=== PATIENT | male | born 1970 | race Caucasian/White ===

== ENCOUNTER 2024-10-23 03:31 | Inpatient (IN) | payer SELFPAY ==
[~2024-10-23] VITALS: Ht 167.6 cm; Wt 59.4 kg
[2024-10-23] VITALS (56 sets, daily range): BP systolic 113–156; BP diastolic 74–124; PULSE 65–91; RESP 8–35; TEMP 36.8–37.1; O2SAT 95–100
[2024-10-23] MEDS: LABETALOL 5MG/ML 4ML INJ IV ONE (04:00)
[2024-10-23] MEDS: CEFTRIAXONE 1GM/50ML 50 ML IV ONE (04:00)
[2024-10-23] MEDS: FUROSEMIDE 40MG/4ML VIAL IV ONE (04:00)
[2024-10-23 04:02] LABS: BASOPHILS % 0.2 % (0.0-2.0); EOSINOPHILS % 2.7 % (0.0-5.0); HEMATOCRIT. 35.6 % (42.0-52.0); HEMOGLOBIN. 11.9 g/dL (14.0-18.0); LYMPHOCYTES % 29.6 % (20.0-50.0); MEAN PLATELET VOLUME 9.5 fl (7.4-10.4); MONOCYTES % 6.1 % (2.0-8.0); NEUTROPHILS % 61.4 % (40.0-76.0); PLATELET 266 x1000/uL (130-400); RED BLOOD CELL COUNT 4.39 mill/uL (4.7-6.1); RED CELL DISTRIBUTION WIDTH 15.8 % (11.6-14.6)
[2024-10-23 04:18] LABS: CREATININE 0.9 mg/dL (0.6-1.3)
[2024-10-23 04:19] LABS: UREA NITROGEN BLOOD 12 mg/dL (9-23)
[2024-10-23 04:20] LABS: ASPARTATE AMINOTRANSFERASE 19 IU/L (<34); BILIRUBIN DIRECT 0.5 mg/dL (<=3.0)
[2024-10-23 04:21] LABS: BILIRUBIN TOTAL 2.3 mg/dL (0.1-1.0); PROTEIN TOTAL 6.8 g/dL (6.0-8.3)
[2024-10-23 04:22] LABS: TROPONIN I HIGH SENSITIVITY 238 ng/L (3.0-53)
[2024-10-23] MEDS: NICARDIPINE 40MG/200ML PREMIX 200 ML IV SCH (04:34)
[2024-10-23 04:49] LABS: BG BASE EXCESS 1.0 mmol/L (-2.0-3.0); BG CARBOXYHEMOGLOBIN 0.2 % (0.5-1.5); BG DEOXYHEMOGLOBIN 0.4 % (0.0-5.0); BG FRACTION INSPIRED OXYGEN 60; BG HCO3 ACT 26.5 mmol/L (21.0-28.0); BG METHEMOGLOBIN 0.3 % (0.5-1.5); BG OXYGEN SATURATION 99.6 % (94.0-98.0); BG OXYHEMOGLOBIN 99.1 % (94.0-98.0); BG PCO2 46.2 mmHg (35.0-48.0); BG PH 7.377 (7.350-7.450); BG PO2 236.7 mmHg (83.0-108.0); BG SAMPLE SITE LEFT RADIAL; BG TOTAL HEMOGLOBIN 12.2 g/dL (13.5-17.5); BG VENT MODE MASK - BIPAP; BG VENT RATE 16.0 set
[2024-10-23] MEDS ORDERED: ONDANSETRON HCL 4MG/2ML INJ IV PRN (05:00)
[2024-10-23] MEDS ORDERED: DOCUSATE SODIUM 100MG CAPSULE PO PRN (05:00)
[2024-10-23] MEDS ORDERED: GUAIFENESIN 200MG/10ML SUGAR FREE UDC PO PRN (05:00)
[2024-10-23] MEDS ORDERED: IPRATROPIUM/ALBUTEROL 0.5-3(2.5)MG/3ML NEB HHN PRN (05:00)
[2024-10-23] MEDS ORDERED: MAGNESIUM/ALUMINUM HYDROXIDE/SIMETHICONE 30ML UDC PO PRN (05:00)
[2024-10-23] MEDS ORDERED: ACETAMINOPHEN 325MG TABLET PO PRN (05:00)
[2024-10-23] MEDS: ENOXAPARIN 80MG/0.8ML SYR SUBCUT NR (05:05)
[2024-10-23] MEDS ORDERED: DEXTROSE 50% WATER 50ML SYRINGE IV PRN (05:15)
[2024-10-23] MEDS ORDERED: NITROGLYCERIN 0.4MG TABLET SL SL PRN (05:15)
[2024-10-23 05:27] LABS: CLARITY URINE CLEAR (CLEAR); COLOR URINE YELLOW (YELLOW); GLUCOSE URINE NEGATIVE (NEGATIVE); KETONES URINE NEGATIVE (NEGATIVE); LEUKOCYTE ESTERASE URINE NEGATIVE (NEGATIVE); NITRITE URINE NEGATIVE (NEGATIVE); OCCULT BLOOD URINE 1+ (NEGATIVE); PH URINE 6.0 (4.5-8.0); PROTEIN URINE 3+ (NEGATIVE); SPECIFIC GRAVITY URINE 1.008 (1.005-1.030); UROBILINOGEN URINE 0.2 E.U./dL (0.2-1.0)
[2024-10-23] MEDS: KCL 20MEQ/100ML PREMIX 100 ML IV SCH (05:36)
[2024-10-23] MEDS ORDERED: POTASSIUM CHLORIDE 20MEQ TABLET SR PO NR (06:00)
[2024-10-23 06:21] LABS: PHOSPHORUS 4.3 mg/dL (2.5-4.9)
[2024-10-23 06:33] LABS: SQUAMOUS EPITHELIAL CELL URINE FEW /lpf (RARE/1+)
[2024-10-23 06:34] LABS: BACTERIA URINE TRACE; FINE GRANULAR CASTS URINE 0-5 /lpf
[2024-10-23 06:43] LABS: TROPONIN I HIGH SENSITIVITY 223.0 ng/L (3.0-53)
[2024-10-23] MEDS: FAMOTIDINE 20MG/2ML VIAL IV SCH (09:17)
[2024-10-23] MEDS: AZITHROMYCIN 500MG/250ML 250 ML IV SCH (09:17)
[2024-10-23 10:10] LABS: *AMPHETAMINES SCREEN URINE NEGATIVE (NEGATIVE); *BARBITURATES SCREEN URINE NEGATIVE (NEGATIVE); *BENZODIAZEPINES SCREEN URINE NEGATIVE (NEGATIVE); *COCAINE SCREEN URINE NEGATIVE (NEGATIVE); CANNABINOID URINE SCREEN NEGATIVE (NEGATIVE); ECSTASY MDMA SCREEN URINE NEGATIVE (NEGATIVE); METHADONE URINE SCREEN NEGATIVE (NEGATIVE); OPIATES URINE SCREEN NEGATIVE (NEGATIVE); PHENCYCLIDINE URINE SCREEN NEGATIVE (NEGATIVE)
[2024-10-23 10:58] LABS: TROPONIN I HIGH SENSITIVITY 274 ng/L (3.0-53)
[2024-10-23 11:30] LABS: INFLUENZA TYPE A Presumptive Negative (Pres. Neg.); INFLUENZA TYPE B Presumptive Negative (Pres. Neg.)
[2024-10-23] MEDS: BLOOD SUGAR DIAGNOSTIC STRIP TEST SCH (11:30)
[2024-10-23 11:31] LABS: RESPIRATORY SYNCYTIAL VIRUS Not Detected (Not Detectd)
[2024-10-23] MEDS: INSULIN LISPRO 100 UNITS/ML SUBCUT SCH (11:58)
[2024-10-23 19:01] LABS: TROPONIN I HIGH SENSITIVITY 399 ng/L (3.0-53)
[2024-10-23] MEDS: IPRATROPIUM/ALBUTEROL 0.5-3(2.5)MG/3ML NEB HHN SCH (20:42)
[2024-10-24] VITALS (51 sets, daily range): BP systolic 107–184; BP diastolic 78–125; PULSE 67–114; RESP 7–30; TEMP 36.4–37; O2SAT 94–100
[2024-10-24] MEDS ORDERED: METOPROLOL TARTRATE 5MG/5ML VIAL IV PRN (05:00)
[2024-10-24 05:42] LABS: BASOPHILS % 0.5 % (0.0-2.0); EOSINOPHILS % 1.6 % (0.0-5.0); HEMATOCRIT. 31.9 % (42.0-52.0); HEMOGLOBIN. 10.8 g/dL (14.0-18.0); LYMPHOCYTES % 10.1 % (20.0-50.0); MEAN PLATELET VOLUME 9.6 fl (7.4-10.4); MONOCYTES % 6.7 % (2.0-8.0); NEUTROPHILS % 81.1 % (40.0-76.0); PLATELET 186 x1000/uL (130-400); RED BLOOD CELL COUNT 3.93 mill/uL (4.7-6.1); RED CELL DISTRIBUTION WIDTH 15.5 % (11.6-14.6)
[2024-10-24 05:55] LABS: CREATININE 0.7 mg/dL (0.6-1.3)
[2024-10-24 05:56] LABS: LDL CHOLESTEROL 83 mg/dL (5-100); TRIGLYCERIDE 275 mg/dL (0-150); UREA NITROGEN BLOOD 11 mg/dL (9-23)
[2024-10-24] MEDS: CEFTRIAXONE 1GM/50ML 50 ML IV SCH (06:46)
[2024-10-24] MEDS ORDERED: ENOXAPARIN 40MG/0.4ML SYR SUBCUT SCH (09:00)
[2024-10-24 09:20] LABS: BG BASE EXCESS 3.8 mmol/L (-2.0-3.0); BG CARBOXYHEMOGLOBIN 0.3 % (0.5-1.5); BG DEOXYHEMOGLOBIN 2.7 % (0.0-5.0); BG FLOW(L/min) 2.00 L/min; BG FRACTION INSPIRED OXYGEN 28; BG HCO3 ACT 28.7 mmol/L (21.0-28.0); BG METHEMOGLOBIN 0.3 % (0.5-1.5); BG OXYGEN SATURATION 97.3 % (94.0-98.0); BG OXYHEMOGLOBIN 96.7 % (94.0-98.0); BG PCO2 44.4 mmHg (35.0-48.0); BG PH 7.428 (7.350-7.450); BG PO2 99.1 mmHg (83.0-108.0); BG SAMPLE SITE RIGHT BRACHIAL; BG TOTAL HEMOGLOBIN 11.6 g/dL (13.5-17.5); BG VENT MODE NASAL CANNULA
[2024-10-24] MEDS: METOPROLOL SUCCINATE 50MG ER TABLET PO SCH (09:27)
[2024-10-24] MEDS: FAMOTIDINE 20MG/2ML VIAL IV SCH (09:28)
[2024-10-24] MEDS: POTASSIUM CHLORIDE 20MEQ TABLET SR PO SCH (12:05)
[2024-10-24] MEDS: AMLODIPINE 10MG TABLET PO SCH (12:06)
[2024-10-24] MEDS: CLONIDINE 0.2MG TABLET PO PRN (12:07)
[2024-10-25] VITALS (17 sets, daily range): BP systolic 113–155; BP diastolic 83–114; PULSE 70–102; RESP 15–23; TEMP 36.4–36.7; O2SAT 96–100
[2024-10-25 07:21] LABS: BASOPHILS % 0.7 % (0.0-2.0); EOSINOPHILS % 2.7 % (0.0-5.0); HEMATOCRIT. 31.5 % (42.0-52.0); HEMOGLOBIN. 10.7 g/dL (14.0-18.0); LYMPHOCYTES % 15.5 % (20.0-50.0); MEAN PLATELET VOLUME 9.4 fl (7.4-10.4); MONOCYTES % 6.1 % (2.0-8.0); NEUTROPHILS % 75.0 % (40.0-76.0); PLATELET 182 x1000/uL (130-400); RED BLOOD CELL COUNT 3.90 mill/uL (4.7-6.1); RED CELL DISTRIBUTION WIDTH 15.0 % (11.6-14.6)
[2024-10-25] MEDS ORDERED: METOPROLOL TARTRATE 5MG/5ML VIAL IV PRN (07:30)
[2024-10-25 07:47] LABS: CREATININE 0.7 mg/dL (0.6-1.3)
[2024-10-25 07:48] LABS: UREA NITROGEN BLOOD 12 mg/dL (9-23)
[2024-10-25] MEDS: LOSARTAN 25 MG TABLET PO SCH (10:10)
[2024-10-25] MEDS: POTASSIUM CHLORIDE 20MEQ TABLET SR PO NR (15:45)
[2024-10-25] MEDS: METOPROLOL TARTRATE 25MG TABLET PO NR (21:56)
[2024-10-26] VITALS (11 sets, daily range): BP systolic 128–153; BP diastolic 95–110; PULSE 76–88; RESP 11–21; TEMP 36.5–37; O2SAT 96–100
[2024-10-26 06:32] LABS: BASOPHILS % 0.6 % (0.0-2.0); EOSINOPHILS % 2.9 % (0.0-5.0); HEMATOCRIT. 34.2 % (42.0-52.0); HEMOGLOBIN. 11.4 g/dL (14.0-18.0); LYMPHOCYTES % 14.1 % (20.0-50.0); MEAN PLATELET VOLUME 10.0 fl (7.4-10.4); MONOCYTES % 5.9 % (2.0-8.0); NEUTROPHILS % 76.5 % (40.0-76.0); PLATELET 211 x1000/uL (130-400); RED BLOOD CELL COUNT 4.23 mill/uL (4.7-6.1); RED CELL DISTRIBUTION WIDTH 15.3 % (11.6-14.6)
[2024-10-26 06:41] LABS: CREATININE 0.9 mg/dL (0.6-1.3); UREA NITROGEN BLOOD 16 mg/dL (9-23)
[2024-10-26] MEDS ORDERED: LOSA25TA26 MT (12:24)
[2024-10-26] MEDS ORDERED: METO-396 MT (12:24)
== END 2024-10-26 15:27 | disposition home or self-care (01) | DRG 133 ==
LOC: ER 03:31 → MICUSO 03:57 → EDBEDREQTM 05:07 → EDBEDREQ 05:07 → ENRESERV 05:13 → 5EST 10-24 16:50
PROVIDERS: ADMIT Internal Medicine; ATTEND Internal Medicine
PROC: 5A09357 Assistance with Respiratory Ventilation, Less than 24 Consecutive Hours, Continuous Positive Airway Pressure (ICD-10-PCS; principal; 2024-10-23)
DX: J96.01 Acute respiratory failure with hypoxia (principal); I50.43 Acute on chronic combined systolic (congestive) and diastolic (congestive) heart failure; J18.9 Pneumonia, unspecified organism; I16.1 Hypertensive emergency; I42.9 Cardiomyopathy, unspecified; I11.0 Hypertensive heart disease with heart failure; E87.6 Hypokalemia; G35 Multiple sclerosis; I34.0 Nonrheumatic mitral (valve) insufficiency; E11.65 Type 2 diabetes mellitus with hyperglycemia; Z91.148 Patient's other noncompliance with medication regimen for other reason
CPT/HCPCS: 36415; 36600; 71045; 71250; 80048; 80061; 80076; 80305; 81003; 82375; 82550; 82805; 82962; 83036; 83605; 83735; 83880; 84100; 84132; 84145; 84443; 84484; 85025; 85379; 87420; 87426; 87804; 93005; 93306; 93970; 94070; 94640; 94660; 94760; 99291; J0456; J0696; J1308; J1650; J1938; J3480; J3490

== ENCOUNTER 2024-10-30 14:06 | Inpatient (IN) | payer SELFPAY ==
[~2024-10-30] VITALS: Ht 167.6 cm; Wt 64.5 kg
[~2024-10-30 14:06] MED LIST: LOSA25TA26 MT; METO-396 MT
[2024-10-30 14:08] VITALS: O2SAT 100
[2024-10-30 15:12] LABS: BASOPHILS % 0.6 % (0.0-2.0); EOSINOPHILS % 0.5 % (0.0-5.0); HEMATOCRIT. 30.4 % (42.0-52.0); HEMOGLOBIN. 10.7 g/dL (14.0-18.0); LYMPHOCYTES % 9.6 % (20.0-50.0); MEAN PLATELET VOLUME 9.4 fl (7.4-10.4); MONOCYTES % 5.1 % (2.0-8.0); NEUTROPHILS % 84.2 % (40.0-76.0); PLATELET 252 x1000/uL (130-400); RED BLOOD CELL COUNT 3.88 mill/uL (4.7-6.1); RED CELL DISTRIBUTION WIDTH 14.9 % (11.6-14.6)
[2024-10-30 15:20] LABS: CREATININE 0.7 mg/dL (0.6-1.3)
[2024-10-30 15:21] LABS: UREA NITROGEN BLOOD 9 mg/dL (9-23)
[2024-10-30 15:27] LABS: TROPONIN I HIGH SENSITIVITY 112 ng/L (3.0-53)
[2024-10-30] MEDS: ASPIRIN 325MG EC TABLET PO ONE (16:26)
[2024-10-30] MEDS: CLOPIDOGREL 75MG TABLET PO ONE (16:26)
[2024-10-30] MEDS ORDERED: IPRATROPIUM/ALBUTEROL 0.5-3(2.5)MG/3ML NEB HHN PRN (17:30)
[2024-10-30] MEDS ORDERED: ACETAMINOPHEN 325MG TABLET PO PRN (17:30)
[2024-10-30] MEDS ORDERED: ONDANSETRON HCL 4MG/2ML INJ IV PRN (17:30)
[2024-10-30] MEDS ORDERED: DOCUSATE SODIUM 100MG CAPSULE PO PRN (17:30)
[2024-10-30] MEDS ORDERED: ASPIRIN 81MG EC TABLET PO SCH (18:00)
[2024-10-30 19:01] LABS: CREATININE 0.7 mg/dL (0.6-1.3); UREA NITROGEN BLOOD 11 mg/dL (9-23)
[2024-10-30] MEDS: METOPROLOL TARTRATE 50MG TABLET PO SCH (19:01)
[2024-10-30] MEDS: POTASSIUM CHLORIDE 20MEQ TABLET SR PO SCH (19:01)
[2024-10-30] MEDS: ENOXAPARIN 80MG/0.8ML SYR SUBCUT NR (19:03)
[2024-10-30 19:10] LABS: TROPONIN I HIGH SENSITIVITY 118 ng/L (3.0-53)
[2024-10-30 20:00] VITALS: BP 139/96; PULSE 66; RESP 17; TEMP 36.7; O2SAT 100
[2024-10-30 21:38] VITALS: BP 139/96; PULSE 66; RESP 18; TEMP 36.7516
[2024-10-30] MEDS: ATORVASTATIN CALCIUM 20MG TABLET PO SCH (22:17)
[2024-10-31] VITALS: BP 128/83; PULSE 62; RESP 17; RESP 7; TEMP 36.4; O2SAT 100
[2024-10-31 04:00] VITALS: BP 131/91; PULSE 74; RESP 18; TEMP 36.3; O2SAT 100
[2024-10-31] MEDS: CLONIDINE 0.1MG TABLET PO PRN (06:54)
[2024-10-31] MEDS: PANTOPRAZOLE 40MG DR TABLET PO SCH (06:54)
[2024-10-31 08:00] VITALS: BP 138/84; PULSE 82; RESP 18; TEMP 36.2; O2SAT 99
[2024-10-31 09:10] LABS: BASOPHILS % 0.9 % (0.0-2.0); EOSINOPHILS % 1.6 % (0.0-5.0); HEMATOCRIT. 32.3 % (42.0-52.0); HEMOGLOBIN. 10.9 g/dL (14.0-18.0); LYMPHOCYTES % 16.4 % (20.0-50.0); MEAN PLATELET VOLUME 10.0 fl (7.4-10.4); MONOCYTES % 6.7 % (2.0-8.0); NEUTROPHILS % 74.4 % (40.0-76.0); PLATELET 219 x1000/uL (130-400); RED BLOOD CELL COUNT 4.04 mill/uL (4.7-6.1); RED CELL DISTRIBUTION WIDTH 14.9 % (11.6-14.6)
[2024-10-31 09:20] LABS: INR 1.1
[2024-10-31 09:23] LABS: CREATINE KINASE MB FRACTION < 0.5 ng/mL (0.5-3.6)
[2024-10-31 10:30] LABS: TROPONIN I HIGH SENSITIVITY 106 ng/L (3.0-53)
[2024-10-31 12:00] VITALS: BP 130/84; PULSE 69; RESP 18; TEMP 36.3; O2SAT 99
[2024-10-31] MEDS: ENOXAPARIN 60MG/0.6ML SYR SUBCUT SCH (12:59)
[2024-10-31] MEDS: EMPAGLIFLOZIN 10MG TABLET PO SCH (12:59)
[2024-10-31] MEDS ORDERED: METOPROLOL TARTRATE 5MG/5ML VIAL IV PRN (13:00)
[2024-10-31] MEDS: ACETAMINOPHEN 325MG TABLET PO PRN (13:12)
[2024-10-31] MEDS: METOPROLOL SUCCINATE 25MG ER TABLET PO SCH (13:12)
[2024-10-31] MEDS: SPIRONOLACTONE 12.5MG TABLET PO SCH (15:15)
[2024-10-31 16:00] VITALS: BP 139/92; PULSE 79; RESP 18; TEMP 36.5; O2SAT 98
[2024-10-31 18:08] LABS: T4 FREE 1.44 ng/dL (0.89-1.76); TROPONIN I HIGH SENSITIVITY 103.0 ng/L (3.0-53)
[2024-10-31 20:00] VITALS: BP_SYST 102; BP_SYST 148; BP_DIAS 64; BP_DIAS 88; PULSE 70; PULSE 79; RESP 18; TEMP 36.1; TEMP 36.3; O2SAT 96; O2SAT 98
[2024-11-01] VITALS (7 sets, daily range): BP systolic 122–149; BP diastolic 68–95; PULSE 65–80; RESP 17–18; TEMP 36.2–36.6; O2SAT 97–100
[2024-11-01] MEDS: LOSARTAN 25 MG TABLET PO SCH (08:36)
[2024-11-01] MEDS: ASPIRIN 81MG TABLET PO SCH (08:36)
[2024-11-01] MEDS ORDERED: IOHEXOL-350 100 ML BOTTLE ONE (09:24)
[2024-11-01] MEDS: NITROGLYCERIN SPRAY/4.9GM CAN TL ONE (10:00)
[2024-11-01 11:23] LABS: CREATININE 0.7 mg/dL (0.6-1.3)
[2024-11-01 11:24] LABS: UREA NITROGEN BLOOD 12 mg/dL (9-23)
[2024-11-01 11:26] LABS: PHOSPHORUS 3.8 mg/dL (2.5-4.9)
[2024-11-01 14:15] LABS: BASOPHILS % 0.3 % (0.0-2.0); EOSINOPHILS % 1.2 % (0.0-5.0); HEMATOCRIT. 31.5 % (42.0-52.0); HEMOGLOBIN. 10.7 g/dL (14.0-18.0); LYMPHOCYTES % 18.4 % (20.0-50.0); MEAN PLATELET VOLUME 10.1 fl (7.4-10.4); MONOCYTES % 6.8 % (2.0-8.0); NEUTROPHILS % 73.3 % (40.0-76.0); PLATELET 224 x1000/uL (130-400); RED BLOOD CELL COUNT 3.95 mill/uL (4.7-6.1); RED CELL DISTRIBUTION WIDTH 14.9 % (11.6-14.6)
[2024-11-01] MEDS: MAGNESIUM/ALUMINUM HYDROXIDE/SIMETHICONE 30ML UDC PO PRN (15:26)
[2024-11-01] MEDS: POTASSIUM CHLORIDE 20MEQ TABLET SR PO NR (15:26)
[2024-11-02] VITALS: BP 130/88; PULSE 64; RESP 18; TEMP 36.4; O2SAT 99
[2024-11-02 04:00] VITALS: BP 138/90; PULSE 65; RESP 16; TEMP 36.5; O2SAT 100
[2024-11-02 08:00] VITALS: BP 137/89; PULSE 66; RESP 16; TEMP 36.4; O2SAT 99
[2024-11-02 12:00] VITALS: BP 135/83; PULSE 77; RESP 16; TEMP 36.4; O2SAT 99
[2024-11-02 16:00] VITALS: BP 144/91; PULSE 66; RESP 16; TEMP 36.4; O2SAT 98
[2024-11-02] MEDS ORDERED: LOSA25TA26 PO (16:07)
[2024-11-02] MEDS ORDERED: METO-396 PO (16:07)
[2024-11-02] MEDS ORDERED: EMPA10TA PO (16:07)
[2024-11-02] MEDS ORDERED: ATOR20TA PO (16:07)
[2024-11-02] MEDS ORDERED: ASPI-1160 PO (16:07)
[2024-11-02] MEDS ORDERED: SPIR25TA PO (16:07)
[2024-11-02 16:25] VITALS: BP 144/91; PULSE 66; RESP 16; TEMP 97.5
== END 2024-11-02 17:15 | disposition home or self-care (01) | DRG 190 ==
LOC: ER 14:17 → EDBEDREQTM 15:36 → EDBEDREQ 15:36 → ENRESERV 19:22 → 6WST 20:26
PROVIDERS: ADMIT Internal Medicine; ATTEND Internal Medicine
DX: I21.4 Non-ST elevation (NSTEMI) myocardial infarction (principal); I11.0 Hypertensive heart disease with heart failure; I50.20 Unspecified systolic (congestive) heart failure; E87.6 Hypokalemia; D64.9 Anemia, unspecified; I25.10 Atherosclerotic heart disease of native coronary artery without angina pectoris; I42.7 Cardiomyopathy due to drug and external agent; F41.9 Anxiety disorder, unspecified; Z79.84 Long term (current) use of oral hypoglycemic drugs
CPT/HCPCS: 36415; 71045; 75571; 80048; 82550; 82553; 83605; 83735; 83880; 84100; 84439; 84484; 85025; 85379; 93005; 93970; 99291; G0378; J1650; J3490; Q9967